=== PATIENT | female | born 1995 | race Caucasian/White ===

== ENCOUNTER 2022-07-24 03:06 | Emergency (ER) | payer SELFPAY ==
[2022-07-24] MEDS ORDERED: Ketorolac Tromethamine 30 MG/ML VIAL ONE (03:51)
== END 2022-07-24 05:35 | disposition home or self-care (01) ==
LOC: ERS 03:06
DX: S03.2XXA Dislocation of tooth, initial encounter (principal); S02.5XXA Fracture of tooth (traumatic), initial encounter for closed fracture; S00.511A Abrasion of lip, initial encounter; W18.30XA Fall on same level, unspecified, initial encounter
CPT/HCPCS: 70450; 70486; 72125; 96372; J1885